=== PATIENT | female | born 1980 | race Caucasian/White ===

== ENCOUNTER 2017-05-24 15:24 | Inpatient (IN) | payer OTHER ==
[~2017-05-24] VITALS: Ht 167.6 cm; Wt 54.1 kg
[~2017-05-24 15:24] MED LIST: ADVAIR 250/501 DISK IH; ALBUTEROL17 GM IH; BENADRYL50 MG PO; CLEOCIN150 MG PO; EPINEPHRIN0.15 MG/0. IM; NARCAN4 MG NS; PREDNISONE10 MG PO; PREDNISONE20 MG PO; PROAIR HFA8.5 GM IH; PROVENTIL,2.5 MG/3 M IH; TRAMADOL HCL50 MG PO; VENTOLIN HFA18 GM IH
[2017-05-24 16:19] LABS: HEMATOCRIT 43.1 % (36.0-46.0); MCH 27.4 PG (29.0-34.0); MCHC 33.6 G/DL (30.0-36.0); MCV 81.3 FL (83-99); MEAN PLAT.VOLUME 10.6 uM^3 (9.5-12.4); PLATELET COUNT 202 K/uL (156-360); RBC DIS.WIDTH-CV 12.8 % (11.8-14.6); RBC DIS.WIDTH-SD 37.8 % (39-53); WHITE BLOOD COUNT 23.7 K/uL (4.1-10.2)
[2017-05-24 16:29] LABS: CHLORIDE 99 mEq/L (99-109); SODIUM 135 mEq/L (136-147)
[2017-05-24 16:30] LABS: GLUCOSE 123 mg/dL (70-99)
[2017-05-24 16:32] LABS: ANION GAP 16 MEQ/L (2-14)
[2017-05-24 16:34] LABS: GFR ESTIMATE (CALCULATED) > 59 mL/min/
[2017-05-24 16:35] LABS: UREA NITROGEN (BUN) 7 mg/dL (9-23)
[2017-05-24 16:38] LABS: POTASSIUM 2.4 mEq/L (3.7-5.4)
[2017-05-24] MEDS ORDERED: ADVAIR 250/501 DISK IH (19:00)
[2017-05-24 19:30] VITALS: BP 115/56
[2017-05-24 23:24] VITALS: BP 105/57
[2017-05-25 03:49] VITALS: BP 112/72
[2017-05-25 04:20] LABS: HEMATOCRIT 35.3 % (36.0-46.0); MCH 27.7 PG (29.0-34.0); MCV 81.5 FL (83-99); MEAN PLAT.VOLUME 10.5 uM^3 (9.5-12.4); PLATELET COUNT 181 K/uL (156-360); RBC DIS.WIDTH-CV 12.8 % (11.8-14.6); RED BLOOD COUNT 4.33 M/uL (3.80-5.20); WHITE BLOOD COUNT 18.5 K/uL (4.1-10.2)
[2017-05-25 04:28] LABS: CHLORIDE 107 mEq/L (99-109); SODIUM 137 mEq/L (136-147)
[2017-05-25 04:29] LABS: GLUCOSE 114 mg/dL (70-99)
[2017-05-25 04:31] LABS: ANION GAP 10 MEQ/L (2-14)
[2017-05-25 04:33] LABS: GFR ESTIMATE (CALCULATED) > 59 mL/min/
[2017-05-25 04:34] LABS: UREA NITROGEN (BUN) 4 mg/dL (9-23)
[2017-05-25 07:21] VITALS: BP 98/55
[2017-05-25 10:02] LABS: C DIFF TOXIN NEGATIVE (NEGATIVE); SPECIMEN PROCESSING CONTROL PASS
[2017-05-25 10:03] LABS: PROBE CHECK PASS
[2017-05-25 11:09] VITALS: BP 102/63
[2017-05-26] MEDS ORDERED: ADVAIR 250/501 DISK IH (09:05)
== END 2017-05-25 13:55 | disposition left against medical advice (07) | DRG 871 ==
LOC: EME 15:24 → 5SOUTH 17:00 → EDOF 17:00 → ENRESERV 17:07 → 5SOUTH 18:58
PROVIDERS: Internal Medicine; Nurse Practitioner Adult Health; Nurse Practitioner Family
DX: A41.9 Sepsis, unspecified organism (principal); J18.9 Pneumonia, unspecified organism; E87.6 Hypokalemia; R19.7 Diarrhea, unspecified; J45.901 Unspecified asthma with (acute) exacerbation; F17.200 Nicotine dependence, unspecified, uncomplicated
CPT/HCPCS: 71020; 80048; 83605; 85027; 87040; 87070; 87205; 87493; 87506; 93005; 94640; 94640 76; 99202; 99281; 99285; J0456; J0696; J1650; J3480; J7030; J7050; J7120; S0028

== ENCOUNTER 2017-05-26 01:44 | Inpatient (IN) | payer OTHER ==
[~2017-05-26] VITALS: Ht 182.9 cm; Wt 53.7 kg
[2017-05-26 02:33] LABS: HEMATOCRIT 36.2 % (36.0-46.0); MCH 27.8 PG (29.0-34.0); MCHC 34.5 G/DL (30.0-36.0); MCV 80.6 FL (83-99); MEAN PLAT.VOLUME 10.2 uM^3 (9.5-12.4); PLATELET COUNT 199 K/uL (156-360); RBC DIS.WIDTH-CV 12.9 % (11.8-14.6); RBC DIS.WIDTH-SD 37.9 % (39-53); RED BLOOD COUNT 4.49 M/uL (3.80-5.20); WHITE BLOOD COUNT 16.1 K/uL (4.1-10.2)
[2017-05-26 02:36] LABS: CARBON DIOXIDE (BICARBONATE) 26.5 MEQ/L (20-31)
[2017-05-26 02:45] LABS: CHLORIDE 106 mEq/L (99-109); SODIUM 139 mEq/L (136-147)
[2017-05-26 02:46] LABS: GLUCOSE 102 mg/dL (70-99)
[2017-05-26 02:48] LABS: ANION GAP 11 MEQ/L (2-14)
[2017-05-26 02:50] LABS: GFR ESTIMATE (CALCULATED) > 59 mL/min/
[2017-05-26 02:51] LABS: UREA NITROGEN (BUN) 4 mg/dL (9-23)
[2017-05-26 02:59] LABS: TROP-I INTERPRETATION NEGATIVE; TROPONIN-I 0.02 ng/mL (0.0-0.30)
[2017-05-26 08:13] LABS: MAGNESIUM 1.6 mg/dL (1.3-2.7)
[2017-05-26] MEDS ORDERED: ADVAIR 250/501 DISK IH (09:05)
[2017-05-26 16:15] VITALS: BP 145/79
[2017-05-26 19:30] VITALS: BP 132/73
[2017-05-26 22:47] LABS: ADD MIUA? NO; BILIRUBIN NEGATIVE; BLOOD NEGATIVE; COLOR YELLOW ((YELLOW)); GLUCOSE (STRIP) 50; KETONES NEGATIVE; LEUKOCYTES NEGATIVE; NITRITE NEGATIVE; PROTEIN (STRIP) NEGATIVE; UCUL ADDED? NO; UROBILINOGEN 0.2 MG/DL (0.2-1.0)
[2017-05-26 22:56] LABS: AMPHETAMINES QUANT VALUE 0 NG/ML; BARBITUATES QUANT VALUE 0 NG/ML; BENZODIAZEPINES QUANT VALUE 0 NG/ML; BENZODIAZEPINES, URINE SCREEN Negative (200 ng/mL); MARIJUANA QUANT VALUE 0 NG/ML; PHENCYCLIDINE QUANT VALUE 0 NG/ML
[2017-05-26 23:12] VITALS: BP 129/75
[2017-05-27 03:43] VITALS: BP 137/78
[2017-05-27 06:43] LABS: HEMATOCRIT 36.6 % (36.0-46.0); MCH 28.3 PG (29.0-34.0); MCHC 34.4 G/DL (30.0-36.0); MCV 82.2 FL (83-99); MEAN PLAT.VOLUME 10.6 uM^3 (9.5-12.4); PLATELET COUNT 205 K/uL (156-360); RBC DIS.WIDTH-CV 13.2 % (11.8-14.6); RED BLOOD COUNT 4.45 M/uL (3.80-5.20)
[2017-05-27 07:09] LABS: ALKALINE PHOSPHATASE 69 IU/L (3-129); ANION GAP 10 MEQ/L (2-14); CHLORIDE 111 MEQ/L (99-109); GFR ESTIMATE (CALCULATED) > 59 mL/min/; GLUCOSE 123 mg/dL (70-99); SAMPLE HEMOLYSIS CHECK 0; SAMPLE ICTERIC CHECK 0; SAMPLE LIPEMIA CHECK 0; SODIUM 142 MEQ/L (136-147); TOTAL BILIRUBIN 0.2 MG/DL (0.0-1.0); UREA NITROGEN (BUN) 5 mg/dL (9-23)
[2017-05-27 07:15] LABS: POTASSIUM 4.4 MEQ/L (3.7-5.4)
[2017-05-27 07:17] LABS: EOSINOPHIL (%) 0 % (0-5); IMMATURE GRANULOCYTE (%) 1.4 % (0.0-0.7); IMMATURE GRANULOCYTE COUNT 0.1 K/uL; INSTRUMENT ABS NEUTROPHIL CT 5.6 K/uL; LYMPHOCYTE COUNT 1.1 K/uL (1.0-2.8); MONOCYTE COUNT 0.3 K/uL (0-0.8); NEUTROPHIL (%) 79.1 % (45-76); NEUTROPHIL COUNT 5.6 K/uL (1.8-6.4)
[2017-05-27 08:29] VITALS: BP 121/88
== END 2017-05-27 12:00 | disposition left against medical advice (07) | DRG 194 ==
LOC: EME 01:44 → EDOF 07:45 → ENRESERV 07:46 → 5SOUTH 13:38
PROVIDERS: Emergency Medicine; Hospitalist
DX: J18.9 Pneumonia, unspecified organism (principal); J45.901 Unspecified asthma with (acute) exacerbation; E87.6 Hypokalemia; F14.10 Cocaine abuse, uncomplicated; F11.10 Opioid abuse, uncomplicated; F17.210 Nicotine dependence, cigarettes, uncomplicated; R09.02 Hypoxemia
CPT/HCPCS: 71010; 80048; 80053; 80306 90; 81003; 82803; 83605; 83735; 83880; 84484; 84702; 85025; 85027; 87040; 93005; 94640; 94640 76; 99202; 99281; 99285; J0456; J0696; J1885; J2543; J2930; J3475; J3480; J7050

== ENCOUNTER 2018-05-04 12:52 | Emergency (ER) | payer OTHER ==
[~2018-05-04] VITALS: Ht 167.6 cm; Wt 60.6 kg
[2018-05-04] MEDS ORDERED: PROVENTIL,2.5 MG/3 M IH (14:09)
[2018-05-04] MEDS ORDERED: VENTOLIN HFA18 GM IH (14:09)
[2018-05-04 15:10] VITALS: BP 124/78
== END 2018-05-04 15:31 | disposition home or self-care (01) ==
LOC: EME 12:52
DX: J45.901 Unspecified asthma with (acute) exacerbation (principal); Z87.891 Personal history of nicotine dependence; F41.9 Anxiety disorder, unspecified; Z88.6 Allergy status to analgesic agent; Z88.1 Allergy status to other antibiotic agents; Z88.5 Allergy status to narcotic agent
CPT/HCPCS: 94640; 99281; 99284; J1100